=== PATIENT | female | born 1990 | race Caucasian/White ===

== ENCOUNTER → 2020-07-06 | Outpatient (CLI) | payer OTHER ==
[~2020-07-06] MED LIST: DOXYCYCLINE HY100 MG PO; IBUPROFEN800 MG PO
== END ==
LOC: EMI 07-05 14:00
DX: H90.42 Sensorineural hearing loss, unilateral, left ear, with unrestricted hearing on the contralateral side (principal)
CPT/HCPCS: 70553; A9577

== ENCOUNTER 2020-09-16 18:49 | Emergency (ER) | payer OTHER ==
[2020-09-16 19:30] LABS: HEMOGLOBIN 11.2 gm/dl (12.3-15.3); RED BLOOD COUNT 5.13 M/UL (4.00-5.10); WHITE BLOOD COUNT 6.4 K/UL (4.5-11.0)
[2020-09-16 20:41] LABS: BUN/CREATININE RATIO 16 (0-10)
[2020-09-17] MEDS ORDERED: IBUPROFEN800 MG PO (00:21)
== END 2020-09-17 00:55 | disposition home or self-care (01) ==
LOC: ER1 18:49
PROVIDERS: Physician Assistant
DX: R07.9 Chest pain, unspecified (principal); R55 Syncope and collapse; R06.02 Shortness of breath; M54.9 Dorsalgia, unspecified; R11.0 Nausea; Z91.040 Latex allergy status
CPT/HCPCS: 71045; 80053; 82550; 82553; 83874; 84484; 85025; 85379; 93005; 99285; Q9967

== ENCOUNTER 2020-09-23 17:41 | Emergency (ER) | payer OTHER ==
[~2020-09-23 17:41] MED LIST changes: -DOXYCYCLINE HY100 MG PO
[2020-09-23 21:42] LABS: HEMOGLOBIN 11.4 gm/dl (12.3-15.3); RED BLOOD COUNT 5.28 M/UL (4.00-5.10); WHITE BLOOD COUNT 3.4 K/UL (4.5-11.0)
[2020-09-23 22:00] LABS: BUN/CREATININE RATIO 12 (0-10)
[2020-09-23] MEDS ORDERED: DOXYCYCLINE HY100 MG PO (22:47)
== END 2020-09-23 23:15 | disposition home or self-care (01) ==
LOC: ER1 17:41
PROVIDERS: Emergency Medicine
DX: U07.1 COVID-19 (principal); J12.82 Pneumonia due to coronavirus disease 2019
CPT/HCPCS: 71045; 80053; 85025; 85379; 99285

== ENCOUNTER → 2020-10-27 | Outpatient (CLI) | payer OTHER ==
[~2020-10-27] MED LIST changes: +DOXYCYCLINE HY100 MG PO
== END ==
LOC: RAD 12:50
DX: R06.00 Dyspnea, unspecified (principal)
CPT/HCPCS: 71046

== ENCOUNTER → 2021-05-20 | Outpatient (CLI) | payer OTHER | LOC: CT 09:19 | DX: E32.8 Other diseases of thymus (principal) | CPT/HCPCS: 71260; Q9967 ==

== ENCOUNTER 2021-11-16 22:13 | Emergency (ER) | payer OTHER ==
[2021-11-16 23:33] LABS: HEMOGLOBIN 13.1 gm/dl (12.3-15.3); RED BLOOD COUNT 5.26 M/UL (4.00-5.10); WHITE BLOOD COUNT 9.1 K/UL (4.5-11.0)
[2021-11-17 00:09] LABS: BUN/CREATININE RATIO 18 (0-10)
== END 2021-11-17 04:12 | disposition home or self-care (01) ==
LOC: ER1 22:13
PROVIDERS: Physician Assistant
DX: R07.89 Other chest pain (principal); J45.909 Unspecified asthma, uncomplicated; Z20.822 Contact with and (suspected) exposure to COVID-19
CPT/HCPCS: 0240U; 71045; 80053; 82550; 82553; 83690; 84484; 85025; 93005; 96374; 99285; C9113; J2405

== ENCOUNTER 2022-01-31 22:27 | Emergency (ER) | payer OTHER ==
[2022-01-31 23:15] LABS: HEMOGLOBIN 12.7 gm/dl (12.3-15.3); RED BLOOD COUNT 4.96 M/UL (4.00-5.10); WHITE BLOOD COUNT 8.5 K/UL (4.5-11.0)
[2022-01-31 23:30] LABS: BUN/CREATININE RATIO 24 (0-10)
== END 2022-02-01 05:45 | disposition home or self-care (01) ==
LOC: ER1 22:27
DX: E87.6 Hypokalemia (principal); J45.909 Unspecified asthma, uncomplicated; Z91.018 Allergy to other foods; Z91.040 Latex allergy status; Z20.822 Contact with and (suspected) exposure to COVID-19
CPT/HCPCS: 71045; 80053; 81001; 82550; 82553; 84484; 84703; 85025; 85379; 93005; 99285; U0002